=== PATIENT | female | born 1970 | race African-American/Black ===

== ENCOUNTER → 2017-03-01 | Outpatient (CLI) | payer MEDICAID ==
[~2017-03-01] MED LIST: ALPR-475 PO; B/P MED PO; NAPR220C2 PO; OXYC-302 PO
== END | disposition home or self-care (01) ==
LOC: CFH 12:30
PROVIDERS: ATTEND Family Medicine
DX: N83.201 Unspecified ovarian cyst, right side (principal)
CPT/HCPCS: 76856

== ENCOUNTER 2019-06-12 10:46 | Day surgery (SDC) | payer MEDICAID ==
[~2019-06-12] VITALS: Ht 162.6 cm; Wt 124.7 kg
[~2019-06-12 10:46] MED LIST changes: -ALPR-475 PO; +ALPR0.5T7 PO; +AMLO10TA8 PO; +METH10TA2 PO; +OXYC-432 PO
[2019-06-12] MEDS ORDERED: LACTATED RINGERS 1,000 ML IV ONE (11:23)
[2019-06-12] MEDS ORDERED: LISI-167 PO (11:23)
[2019-06-12] MEDS ORDERED: DIAZEPAM 5 MG TABLET PO STA (11:23)
[2019-06-12 11:34] VITALS: BP 167/99
[2019-06-12] MEDS ORDERED: FENTANYL PF 250 MCG/5ML ONE (12:01)
[2019-06-12] MEDS ORDERED: MIDAZOLAM 1 MG/ML, 2ML ONE (12:01)
[2019-06-12 12:20] LABS: HCG UR SG 1.014 (1.003-1.030)
[2019-06-12 12:42] LABS: ALBUMIN 3.7 g/dL (3.4-5.0); ANION GAP 6 mmol/L (5-15); CALCIUM 8.9 mg/dL (8.5-10.1); CHLORIDE 107 mmol/L (98-107)
[2019-06-12 12:45] LABS: ALANINE AMINOTRANSFERASE 24 U/L (12-78); ALKALINE PHOSPHATASE 60 U/L (45-117); BILIRUBIN,TOTAL 0.4 mg/dL (0.2-1.0); CREATININE 0.83 mg/dL (0.55-1.02); TOTAL PROTEIN 7.5 g/dL (6.4-8.2)
[2019-06-12] MEDS ORDERED: PROPOFOL 10 MG/ML, 20ML ONE (13:37)
[2019-06-12] MEDS ORDERED: DEXAMETHASONE 4 MG/ML, 1ML ONE (13:37)
[2019-06-12] MEDS ORDERED: CEFAZOLIN 1,000 MG ONE (13:37)
[2019-06-12] MEDS ORDERED: ONDANSETRON 2MG/ML, 2ML ONE (13:37)
[2019-06-12] MEDS ORDERED: SUCCINYLCHOLINE 20 MG/ML, 10ML ONE (13:37)
[2019-06-12] MEDS ORDERED: ROCURONIUM 10MG/ML,5ML ONE (13:37)
[2019-06-12] MEDS ORDERED: ACETAMINOPHEN 650 MG/20.3 ML UDC ONE (15:17)
[2019-06-12] MEDS ORDERED: OXYcodone 5 MG/5 ML ORAL.SOL UDC ONE ×2 (15:17→15:50)
[2019-06-12] MEDS ORDERED: MEPERIDINE/PF 25MG/ML,1ML ONE (15:17)
[2019-06-12] MEDS: OXYcodone 5 MG/5 ML ORAL.SOL UDC PO PRN ×2 (15:20→15:50)
[2019-06-12] MEDS ORDERED: LABETALOL 5MG/ML, 20ML IV PRN (15:30)
[2019-06-12] MEDS ORDERED: hydrALAzine 20 MG/ML, 1ML IV PRN (15:30)
[2019-06-12] MEDS ORDERED: KETOROLAC 30 MG/1 ML IV PRN (15:30)
[2019-06-12] MEDS ORDERED: ALBUTEROL SULFATE 2.5 MG/3 ML NPPB PRN (15:30)
[2019-06-12] MEDS ORDERED: ACETAMINOPHEN 650 MG/20.3 ML UDC PO PRN (15:30)
[2019-06-12] MEDS ORDERED: FENTANYL PF 100 MCG/2ML IV PRN (15:30)
[2019-06-12] MEDS ORDERED: PROMETHAZINE 25 MG/ML, 1ML IV PRN (15:30)
[2019-06-12] MEDS ORDERED: METOCLOPRAMIDE 5 MG/ML, 2ML IV PRN (15:30)
[2019-06-12] MEDS ORDERED: HYDROmorphone 1 MG/ML, 1ML INJ IV PRN (15:30)
[2019-06-12] MEDS ORDERED: MEPERIDINE/PF 25MG/0.5ML IVPush PRN (15:30)
[2019-06-12] MEDS ORDERED: ONDANSETRON 2MG/ML, 2ML IVPush PRN (15:30)
== END 2019-06-12 16:40 | disposition home or self-care (01) ==
LOC: OUT 10:46
PROVIDERS: ATTEND Podiatrist Foot & Ankle Surgery
DX: M20.12 Hallux valgus (acquired), left foot (principal); Z79.1 Long term (current) use of non-steroidal anti-inflammatories (NSAID); Z88.8 Allergy status to other drugs, medicaments and biological substances
CPT/HCPCS: 28297; 36415; 64445; 64447; 73620; 80053; 81025; C1713; C1762; C1776; J0330; J0690; J1100; J2175; J2250; J2405; J2704; J3010; J7120; 76000